=== PATIENT | male | born 1975 | race Caucasian/White ===

== ENCOUNTER 2016-05-19 19:40 | Emergency (ER) | payer MEDICAID ==
[2016-05-19 20:03] VITALS: RESP 16; TEMP 98.1
[2016-05-19 20:21] VITALS: BP 136/86; PULSE 82; O2SAT 97
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
[2016-05-19] MEDS ORDERED: HYDROCOD/APAP 5/325 PREPACK#6 BTL TAKEHOME ONE (21:00)
== END 2016-05-19 21:14 | disposition home or self-care (01) ==
DX: S80.11XA Contusion of right lower leg, initial encounter (principal); V03.10XA Pedestrian on foot injured in collision with car, pick-up truck or van in traffic accident, initial encounter; Y92.410 Unspecified street and highway as the place of occurrence of the external cause; Y99.8 Other external cause status; Y93.02 Activity, running

== ENCOUNTER 2016-12-23 18:16 | Emergency (ER) | payer OTHER, MEDICAID ==
[2016-12-23 18:31] VITALS: RESP 16; TEMP 98.6
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
[2016-12-23] MEDS ORDERED: IBUPROFEN 600 MG TAB PO ONE (19:10)
[2016-12-23] MEDS ORDERED: LIDOCAINE 5% 1 EA PATCH TD ONE (19:10)
[2016-12-23] MEDS ORDERED: CYCLOBENZAPRINE 10MG PREPACK#3 BTL TAKEHOME ONE (20:40)
[2016-12-23] MEDS ORDERED: CYCLOBENZAPRINE 10 MG TAB PO ONE (20:40)
[2016-12-23] MEDS ORDERED: PATCH REMOVAL 1 EA PATCH TD SCH (21:00)
[2016-12-23 21:01] VITALS: BP 107/67; PULSE 67; O2SAT 94
== END 2016-12-23 21:12 | disposition home or self-care (01) ==
DX: S39.92XA Unspecified injury of lower back, initial encounter (principal); S43.492A Other sprain of left shoulder joint, initial encounter; S60.221A Contusion of right hand, initial encounter; V13.4XXA Pedal cycle driver injured in collision with car, pick-up truck or van in traffic accident, initial encounter; Y92.480 Sidewalk as the place of occurrence of the external cause; Y99.8 Other external cause status; Y93.55 Activity, bike riding

== ENCOUNTER → 2017-10-18 | Outpatient (CLI) | payer MEDICAID | LOC: FIMAGING 11:31 | PROVIDERS: ATTEND Internal Medicine | DX: M79.671 Pain in right foot (principal); M79.672 Pain in left foot ==

== ENCOUNTER 2018-03-31 14:02 | Emergency (ER) | payer MEDICAID ==
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
[2018-03-31] MEDS: IBUPROFEN 600 MG TAB PO ONE (14:51)
[2018-03-31 15:32] VITALS: BP 114/76
== END 2018-03-31 15:28 | disposition home or self-care (01) ==
DX: S50.02XA Contusion of left elbow, initial encounter (principal); S20.229A Contusion of unspecified back wall of thorax, initial encounter; W01.0XXA Fall on same level from slipping, tripping and stumbling without subsequent striking against object, initial encounter

== ENCOUNTER 2018-04-26 13:58 | Emergency (ER) | payer MEDICAID ==
[2018-04-26 14:12] VITALS: BP 119/69
--- NOTE | 2018-04-26 15:14 | EDPHY ---
General Time Seen by Provider: 04/26/18 15:13 Narrative: CLINICAL IMPRESSION: Left otalgia, cerumen ASSESSMENT/PLAN: Patient is a 43-year-old male with no significant medical history who presents to the emergency department with feeling that he has a bug in his left ear. Patient is afebrile and not toxic-appearing, he is in no acute distress on arrival. Physical examination reveals a small, subcentimeter piece of cerumen that is not impacted. This was removed without difficulty. There was no evidence of otitis media, otitis externa, canal trauma, tympanic membrane perforation or other acute process. Upon removal the patient reports feeling better. He denies any other complaints in feels ready for discharge. Patient is well established with his primary care provider, he will call to schedule an appointment as needed. We discussed importance of not taking anything in his ears, recommended Debrox in the future for cerumen removal. Return precautions discussed-patient to return for increased pain, drainage, decreased hearing, fever or for any other concerning symptom. Patient verbalized understanding and he is in agreement with this plan. DIFFERENTIAL DX: Foreign body, TM perforation, canal trauma, otitis media, otitis externa, mastoiditis ED PROCEDURES: Procedure: Cerumen removal. After a physical exam was performed cerumen needed to be removed from the patient's ear canal. The indication of the procedure was otalgia and cerumen, unable to visualize entire TM. The procedure was performed with an ear curette. The patient tolerated the procedure well. The procedure was performed by myself. ED COURSE: 1522: Discussed with Dr. Ramirez CHIEF COMPLAINT: Possible foreign body left ear HPI: Patient is a 43-year-old male with no significant medical history presents to the emergency department with concerns of having a retained bug in his left ear. Patient woke up this morning felt some buzzing in his left ear, felt that it lodged in his ear and proceeded to be new since throughout the day. He denies any continuous buzzing however the ear feels irritated. He did try to flush the ear, did not note anything to come out. He proceeded here for further evaluation. Patient denies any headache, dizziness, ear drainage, recent fever, sore throat, nausea or vomiting. Patient denies any other complaints. PAST MEDICAL HISTORY: Denies Pertinent Past Surgical History: Denies Family History: Noncontributory Social History: Denies illicit drug use or smoking ROS: A full 10 point review of systems was negative except for those mentioned in HPI. PHYSICAL EXAM: General Appearance: Well-developed, well-appearing and in no acute distress HEENT: Normocephalic, atraumatic. Right external canal normal, TM trudy christina with no evidence of serous or mucopurulent otitis. Left external canal with large cerumen, removed as discussed in the procedure note. TM is pearly christina with no evidence of serous or mucopurulent otitis. There is no evidence of perforation or canal trauma. Oropharynx clear is no erythema or exudates, no tonsillar hypertrophy or asymmetry. Dentition without abnormality. Eyes: PERRLA, no acute vision change, nystagmus, swelling, discharge, pain or photosensitivity. Conjunctiva pink, no pallor or injection Neck: Supple, nontender, no lymphadenopathy, no midline pain, FROM, no meningismus. Respiratory: There are no retractions, lungs are clear to auscultation. Cardiac: Regular rate and rhythm, no murmurs or gallops. Gastrointestinal: Abdomen is soft, nontender, bowel sounds normal, no masses/ hernia, no rigidity, guarding or focal peritoneal findings. Skin: Warm, dry, no rashes, no nodules on palpation. MEDICAL DECISION MAKING: Patient was seen independently. Secondary supervising physician at time of evaluation was Dr. Ramirez, she did not evaluate this patient however I did discuss the physical exam and plan. Diagnosis: Otalgia and cerumen left ear. New, requires workup Summary: See Assessment and Plan for summary of ED visit Clinical lab tests: Not applicable. Independent visualization of images, tracing, or specimens: Not applicable. Decision to obtain medical records or history from someone other than the patient: No Review / Summarize previous medical records: No Discussed patient with another provider: Yes, Dr. Ramirez Patient Progress: Stable, discharged. - History Smoking Status: Never smoked - Objective Vital Signs: Initial Vital Signs Temperature (C) 36.6 C 04/26/18 14:08 Heart Rate 76 04/26/18 14:08 Respiratory Rate 18 04/26/18 14:08 Blood Pressure 119/69 04/26/18 14:08 O2 Sat (%) 96 04/26/18 14:08 O2 Delivery Mode Room Air Allergies/Adverse Reactions: No Known Allergies Allergy (Verified 04/26/18 14:08) Home Medications: Medication Instructions Recorded No Medications [NO HOME 1 ea [facility] [place]26[place]10 MEDICATIONS] Departure - Departure Disposition: Home, Routine, Self-Care Clinical Impression: Otalgia of left ear Condition: Good Instructions: Cerumen Impaction (ED) Additional Instructions: DISCHARGE INSTRUCTIONS FROM YOUR DOCTOR Thank you for visiting our emergency department today. Please keep in mind that discharge from the emergency department does not mean that there is nothing wrong - it simply means that we have not identified an emergency condition that requires further evaluation or treatment in the hospital. You should always plan to follow up with primary care for re-evaluation of your condition in the next 2-3 days. Please do not stick anything into you ear canal. If you find yourself having excessive ear wax please use [id number] products such as Debrox in the future. People present with illnesses and injuries in different ways, and it is always possible that we have missed something. You may always return for re-evaluation if symptoms worsen or if they are not improving or if you develop new/different symptoms. Again, thank you for choosing our emergency department. We hope that you feel better. Referrals: Cody Jean MD [Primary Care Provider] - Follow Up Only If Needed
== END 2018-04-26 15:43 | disposition home or self-care (01) ==
DX: H92.02 Otalgia, left ear (principal)